=== PATIENT | female | born 1985 | race Caucasian/White ===

== ENCOUNTER 2022-07-12 14:52 | Emergency (ER) | payer MEDICARE ==
[~2022-07-12] VITALS: Ht 170.2 cm; Wt 98.1 kg
[2022-07-12 14:53] VITALS: BP 146/92
[2022-07-12] MEDS ORDERED: JUNE1.5T (15:10)
== END 2022-07-12 16:49 | disposition home or self-care (01) ==
LOC: M ED 14:52
DX: S00.03XA Contusion of scalp, initial encounter (principal); W00.0XXA Fall on same level due to ice and snow, initial encounter; Y93.21 Activity, ice skating; Z79.899 Other long term (current) drug therapy